=== PATIENT | female | born 1980 | race Caucasian/White ===

== ENCOUNTER 2020-05-09 11:43 | Emergency (ER) | payer OTHER ==
[~2020-05-09 11:43] MED LIST: BACTRIM DS TAB1 EACH PO; ETODOLAC500 MG PO; KEFLEX250 MG PO; LYSTEDA650 MG PO
[2020-05-09 12:53] LABS: BASOPHIL 0.7 % (0-2); EOSINOPHIL 3.2 % (0-5); HCT 39.5 % (37.0-47.0); HGB 12.5 g/dl (12.5-16.0); LYMPHOCYTE 25.6 % (15-48); MCH 27.4 pg (25.0-31.0); MCHC 31.6 g/dL (32.0-36.0); MCV 86.4 fL (78.0-100.0); MONOCYTE 11.3 % (0-12); NRBC 0; PLT 251 K/uL (150-400); RBC 4.57 M/uL (4.20-5.40); RDW 14.6 % (11.5-14.0)
[2020-05-09 12:59] LABS: BILIRUBIN NEGATIVE (NEGATIVE); BLOOD TRACE-INTACT Ery/uL (NEGATIVE); CLARITY CLEAR (CLEAR); COLOR YELLOW (YELLOW); GLUCOSE (U) NORMAL (NORMAL); LEUKOCYTES NEGATIVE Leu/uL (NEGATIVE); NITRITE POSITIVE (NEGATIVE); PROTEIN NEGATIVE (NEGATIVE); SPECIFIC GRAVITY >=1.030 (1.001-1.030); UROBILINOGEN 0.2 mg/dL (0.2-1.0); pH 5.5 (5.0-9.0)
[2020-05-09 13:01] LABS: ALBUMIN 3.2 g/dL (3.4-5.0); BILIRUBIN - TOTAL 0.2 mg/dL (0.2-1.0); BUN/CREAT RATIO (CALC) 20.8 RATIO; CREATININE 0.72 mg/dL (0.51-0.95); POTASSIUM 4.2 mmol/L (3.5-5.1); TOTAL PROTEIN 7.2 g/dL (6.4-8.2)
[2020-05-09 13:23] LABS: BACTERIA 3+; SQUAMOUS EPITHELIAL CELLS >50; URINARY RBC RARE
[2020-05-09 14:35] LABS: CORONAVIRUS 2019 SARS-COV-2 NEGATIVE (NEGATIVE); INFLUENZA A NAA NEGATIVE (NEGATIVE)
[2020-05-09] MEDS ORDERED: MACROBID100 MG PO (14:59)
== END 2020-05-09 16:34 | disposition home or self-care (01) ==
LOC: FER 11:43
PROVIDERS: Emergency Medicine
DX: N39.0 Urinary tract infection, site not specified (principal); R07.89 Other chest pain; F17.200 Nicotine dependence, unspecified, uncomplicated; Z88.0 Allergy status to penicillin; Z88.5 Allergy status to narcotic agent; Z20.822 Contact with and (suspected) exposure to COVID-19
CPT/HCPCS: 36415; 71046; 80053; 81001; 83690; 85025; U0002

== ENCOUNTER 2020-06-12 09:56 | Emergency (ER) | payer OTHER ==
[~2020-06-12 09:56] MED LIST changes: +MACROBID100 MG PO
[2020-06-12 12:10] LABS: BASOPHIL 0.5 % (0-2); HCT 41.4 % (37.0-47.0); HGB 13.1 g/dl (12.5-16.0); LYMPHOCYTE 17.5 % (15-48); MCH 27.4 pg (25.0-31.0); MCHC 31.6 g/dL (32.0-36.0); MCV 86.6 fL (78.0-100.0); MONOCYTE 9.1 % (0-12); MPV 9.9 fL (6.0-9.5); NEUTROPHIL 69.6 % (41-80); NRBC 0; PLT 268 K/uL (150-400); RBC 4.78 M/uL (4.20-5.40); RDW 14.2 % (11.5-14.0); WBC 11.7 K/uL (4.0-10.5)
[2020-06-12 12:15] LABS: INR 1.07 (0.9-1.2); PROTHROMBIN TIME 13.2 SECONDS (11.4-13.6); PTT 39.7 SECONDS (22.2-34.7)
[2020-06-12 12:16] LABS: D-DIMER 1.22 ug/mLFEU (0.00-0.41)
[2020-06-12 12:21] LABS: ALBUMIN 3.2 g/dL (3.4-5.0); BILIRUBIN - TOTAL 0.4 mg/dL (0.2-1.0); CREATININE 0.7 mg/dL (0.51-0.95); GLOBULIN (CALCULATION) 4.3 g/dL; POTASSIUM 3.8 mmol/L (3.5-5.1); TOTAL PROTEIN 7.5 g/dL (6.4-8.2)
[2020-06-12 12:26] LABS: LACTIC ACID 2.2 mmol/L (0.4-1.9)
[2020-06-12] MEDS ORDERED: ASPIRIN325 MG PO (16:37)
[2020-06-12] MEDS ORDERED: CLEOCIN HCL150 MG PO (16:37)
[2020-06-12] MEDS ORDERED: NORCO 5-325 TA1 EACH PO ×2 (16:37→16:43)
[2020-06-12] MEDS ORDERED: CLEOCIN300 MG PO (16:43)
[2020-06-12] MEDS ORDERED: ASPIRIN EC325 MG PO (16:43)
== END 2020-06-12 17:04 | disposition home or self-care (01) ==
LOC: FER 09:56
PROVIDERS: Emergency Medicine
DX: I80.01 Phlebitis and thrombophlebitis of superficial vessels of right lower extremity (principal); F17.210 Nicotine dependence, cigarettes, uncomplicated; Z88.5 Allergy status to narcotic agent; Z88.0 Allergy status to penicillin; Z20.822 Contact with and (suspected) exposure to COVID-19
CPT/HCPCS: 36415; 80053; 82550; 83605; 84145; 85025; 85379; 85610; 85730; 93971; J1170; J2405; J3370; J7030; J7050; U0002

== ENCOUNTER 2020-07-29 16:33 | Emergency (ER) | payer OTHER ==
[~2020-07-29 16:33] MED LIST changes: +ASPIRIN EC325 MG PO; +ASPIRIN325 MG PO; +CLEOCIN HCL150 MG PO; +CLEOCIN300 MG PO; +NORCO 5-325 TA1 EACH PO
[2020-07-29 20:24] LABS: BASOPHIL 0.7 % (0-2); EOSINOPHIL 3.5 % (0-5); HCT 36.2 % (37.0-47.0); HGB 11.8 g/dl (12.5-16.0); LYMPHOCYTE 32.6 % (15-48); MCH 27.7 pg (25.0-31.0); MCHC 32.6 g/dL (32.0-36.0); MONOCYTE 9.7 % (0-12); MPV 9.7 fL (6.0-9.5); NEUTROPHIL 53.3 % (41-80); NRBC 0; PLT 227 K/uL (150-400); RBC 4.26 M/uL (4.20-5.40); RDW 14.2 % (11.5-14.0); WBC 8.1 K/uL (4.0-10.5)
[2020-07-29 20:33] LABS: INR 0.98 (0.9-1.2); PROTHROMBIN TIME 12.3 SECONDS (11.4-13.6)
[2020-07-29 20:34] LABS: PTT 37.6 SECONDS (22.2-34.7)
[2020-07-29 20:43] LABS: ALBUMIN 3.3 g/dL (3.4-5.0); BILIRUBIN - TOTAL 0.3 mg/dL (0.2-1.0); BUN/CREAT RATIO (CALC) 20.3 RATIO; CREATININE 0.74 mg/dL (0.51-0.95); GLOBULIN (CALCULATION) 3.6 g/dL; POTASSIUM 3.5 mmol/L (3.5-5.1); TOTAL PROTEIN 6.9 g/dL (6.4-8.2)
== END 2020-07-29 23:00 | disposition home or self-care (01) ==
LOC: FER 16:33
PROVIDERS: Nurse Practitioner Family
DX: I80.3 Phlebitis and thrombophlebitis of lower extremities, unspecified (principal); R21 Rash and other nonspecific skin eruption; F17.210 Nicotine dependence, cigarettes, uncomplicated; Z86.718 Personal history of other venous thrombosis and embolism; Z88.0 Allergy status to penicillin; Z88.5 Allergy status to narcotic agent
CPT/HCPCS: 36415; 80053; 85025; 85610; 85730; 93971

== ENCOUNTER 2020-12-22 17:49 | Emergency (ER) | payer OTHER ==
[2020-12-22 19:23] LABS: BASOPHIL 0.5 % (0-2); EOSINOPHIL 3.3 % (0-5); HCT 35.6 % (37.0-47.0); HGB 11.6 g/dl (12.5-16.0); LYMPHOCYTE 22.6 % (15-48); MCH 27.9 pg (25.0-31.0); MCHC 32.6 g/dL (32.0-36.0); MCV 85.6 fL (78.0-100.0); MONOCYTE 8.9 % (0-12); MPV 10.2 fL (6.0-9.5); NEUTROPHIL 64.4 % (41-80); NRBC 0; PLT 246 K/uL (150-400); RBC 4.16 M/uL (4.20-5.40); WBC 9.4 K/uL (4.0-10.5)
[2020-12-22 19:28] LABS: INR 0.95 (0.9-1.2); PROTHROMBIN TIME 12.1 SECONDS (11.8-13.4)
[2020-12-22 19:34] LABS: BUN/CREAT RATIO (CALC) 14.6 RATIO; CREATININE 0.89 mg/dL (0.51-0.95); POTASSIUM 3.5 mmol/L (3.5-5.1)
[2020-12-22] MEDS ORDERED: BACTRIM DS TAB1 EACH PO (20:21)
== END 2020-12-22 20:37 | disposition home or self-care (01) ==
LOC: FER 17:49
PROVIDERS: Nurse Practitioner Family
DX: I80.01 Phlebitis and thrombophlebitis of superficial vessels of right lower extremity (principal); L03.115 Cellulitis of right lower limb; F17.210 Nicotine dependence, cigarettes, uncomplicated; Z88.0 Allergy status to penicillin; Z88.6 Allergy status to analgesic agent
CPT/HCPCS: 36415; 80048; 85025; 85610; 85730; 93971

== ENCOUNTER 2021-01-01 06:42 | Emergency (ER) | payer OTHER ==
[2021-01-01 08:17] LABS: INFLUENZA A NAA NEGATIVE (NEGATIVE)
[2021-01-01 08:31] LABS: CORONAVIRUS 2019 SARS-COV-2 POSITIVE (NEGATIVE)
== END 2021-01-01 10:29 | disposition home or self-care (01) ==
LOC: FER 06:42
PROVIDERS: Emergency Medicine
DX: U07.1 COVID-19 (principal); F17.200 Nicotine dependence, unspecified, uncomplicated; Z88.0 Allergy status to penicillin; Z88.5 Allergy status to narcotic agent; Z23 Encounter for immunization
CPT/HCPCS: 87880; M0243; Q0244; U0002

== ENCOUNTER 2021-03-28 09:27 | Emergency (ER) | payer OTHER ==
[2021-03-28] MEDS ORDERED: BACTRIM DS TAB1 EACH PO (10:30)
== END 2021-03-28 10:56 | disposition home or self-care (01) ==
LOC: FER 09:27
DX: L02.214 Cutaneous abscess of groin (principal); F17.210 Nicotine dependence, cigarettes, uncomplicated; Z88.0 Allergy status to penicillin; Z88.5 Allergy status to narcotic agent
CPT/HCPCS: 87070; 87205